=== PATIENT | male | born 1990 | race Hispanic/Latino ===

== ENCOUNTER 2018-10-06 12:58 | Emergency (ER) | payer BC ==
[2018-10-06] MEDS ORDERED: IBUPROFEN 400 MG TABLET ONE (13:28)
[2018-10-06 13:44] LABS: APPEARANCE,URINE Clear (CLEAR); BILIRUBIN,URINE Negative (NEGATIVE); COLOR,URINE Yellow (YELLOW); GLUCOSE, URINE (UA) Negative (NEGATIVE); KETONES,URINE Negative (NEGATIVE); LEUKOCYTE ESTERASE ,URINE Trace (NEGATIVE); NITRATE,URINE Negative (NEGATIVE); OCCULT BLOOD,URINE Negative (NEGATIVE); PROTEIN,URINE Negative (NEGATIVE)
[2018-10-06 14:01] LABS: RAPID GROUP A STREP NEGATIVE (NEGATIVE)
[2018-10-06 14:04] LABS: BACTERIA,URINE Rare /HPF (None Seen); MUCUS,URINE Many LPF (None Seen); RBC,URINE 0-1 /HPF (0-1); SQUAMOUS EPITHELIAL CELL,UR Rare /HPF (0-2); WBC,URINE 0-1 /HPF (0-1)
[2018-10-06 15:41] LABS: BASOPHILS % (AUTO) 0.1 % (0.0-5.0); EOSINOPHILS % (AUTO) 0.1 % (0.0-8.0); HEMATOCRIT 40.3 % (42-54); LYMPHOCYTES % (AUTO) 7.4 % (21.0-51.0); MEAN CORPUSCULAR HEMOGLOBIN 31.7 pg (27.0-33.0); MEAN CORPUSCULAR VOLUME 93.4 fL (79-99); MONOCYTES % (AUTO) 5.6 % (3.0-13.0); NEUTROPHILS % (AUTO) 86.8 % (40.0-77.0); PLATELET COUNT (AUTO) 173 K/uL (130-400); RED BLOOD CELL COUNT(AUTO) 4.31 MIL/uL (4.50-6.20); RED CELL DISTRIBUTION WIDTH 12.6 % (11.0-15.5)
[2018-10-06 15:50] LABS: CREATININE 0.9 mg/dL (0.5-1.5); POTASSIUM 3.6 mmol/L (3.5-5.1)
== END 2018-10-06 15:50 | disposition home or self-care (01) ==
LOC: EDH 12:58
DX: B34.9 Viral infection, unspecified (principal); H10.023 Other mucopurulent conjunctivitis, bilateral; R19.7 Diarrhea, unspecified; J45.909 Unspecified asthma, uncomplicated
CPT/HCPCS: 36415; 80048; 81001; 85025; 87804; 87880

== ENCOUNTER 2019-02-22 12:53 | Emergency (ER) | payer OTHER ==
[2019-02-22] MEDS ORDERED: ACETAMINOPHEN 325 MG TAB ONE (13:13)
[2019-02-22] MEDS ORDERED: KETOROLAC TROMETHAMINE 60 MG/2 ML VIAL ONE (13:13)
[2019-02-22] MEDS ORDERED: ONDANSETRON ODT 4 MG TAB ONE (13:14)
[2019-02-22 14:06] LABS: RAPID GROUP A STREP NEGATIVE (NEGATIVE)
== END 2019-02-22 14:18 | disposition home or self-care (01) ==
LOC: EDH 12:53
DX: J11.1 Influenza due to unidentified influenza virus with other respiratory manifestations (principal); J45.909 Unspecified asthma, uncomplicated
CPT/HCPCS: 87804 ×2; 87880; 96372; 99284; J1885

== ENCOUNTER 2019-05-09 12:25 | Emergency (ER) | payer SELFPAY ==
[2019-05-09] MEDS ORDERED: METHYLPREDNISOLONE SOD SUCC 125MG/2ML VIAL ONE (12:55)
[2019-05-09] MEDS ORDERED: IPRATROPIUM/ALBUTEROL SULFATE 3 ML SOLUTION IH ONE (13:10)
== END 2019-05-09 14:38 | disposition home or self-care (01) ==
LOC: EDH 12:25
DX: J45.901 Unspecified asthma with (acute) exacerbation (principal)
CPT/HCPCS: 71046; 87804 ×2; 94640; 96372; 99285; J2930; 96374

== ENCOUNTER 2019-10-16 22:45 | Emergency (ER) | payer OTHER | END 2019-10-16 23:41 | disposition home or self-care (01) | LOC: EDH 22:45 | DX: J30.9 Allergic rhinitis, unspecified (principal) | CPT/HCPCS: 99282 ==

== ENCOUNTER 2019-11-17 01:12 | Emergency (ER) | payer OTHER ==
[2019-11-17 01:47] LABS: APPEARANCE,URINE Clear (CLEAR); BILIRUBIN,URINE Negative (NEGATIVE); COLOR,URINE Yellow (YELLOW); GLUCOSE, URINE (UA) Negative (NEGATIVE); KETONES,URINE Negative (NEGATIVE); LEUKOCYTE ESTERASE ,URINE Negative (NEGATIVE); NITRATE,URINE Negative (NEGATIVE); OCCULT BLOOD,URINE Negative (NEGATIVE); PROTEIN,URINE Negative (NEGATIVE)
[2019-11-17] MEDS ORDERED: LIDOCAINE HCL MPF 1% 5ML VIAL ONE (02:53)
[2019-11-17] MEDS ORDERED: CEFTRIAXONE SODIUM 500 MG VIAL ONE (02:53)
[2019-11-17] MEDS ORDERED: AZITHROMYCIN 250 MG TABLET PO ONE (02:54)
== END 2019-11-17 03:24 | disposition home or self-care (01) ==
LOC: EDH 01:12
DX: R30.0 Dysuria (principal); R35.0 Frequency of micturition; R39.15 Urgency of urination; J45.909 Unspecified asthma, uncomplicated
CPT/HCPCS: 81003; 87088; 87486; 87797; 96372; 99283; J0696; J3490

== ENCOUNTER 2021-01-04 12:44 | Emergency (ER) | payer OTHER | END 2021-01-04 13:56 | disposition home or self-care (01) | LOC: EDH 12:44 | DX: M25.561 Pain in right knee (principal); M25.562 Pain in left knee; J45.909 Unspecified asthma, uncomplicated; V49.49XA Driver injured in collision with other motor vehicles in traffic accident, initial encounter; Y93.89 Activity, other specified; Y92.89 Other specified places as the place of occurrence of the external cause; Y99.8 Other external cause status ==

== ENCOUNTER 2021-07-01 18:28 | Emergency (ER) | payer SELFPAY ==
[~2021-07-01] VITALS: Ht 175.3 cm; Wt 67.1 kg
[2021-07-01] MEDS ORDERED: NEOMY SULF/BACITRA/POLYMYXIN B 1 EACH PACKET TP ONE (18:53)
[2021-07-01] MEDS ORDERED: CEPH500B PO (19:49)
[2021-07-01] MEDS ORDERED: IBUP-2088 PO (19:49)
[2021-07-01 20:01] VITALS: BP 127/71
== END 2021-07-01 20:06 | disposition home or self-care (01) ==
LOC: EDH 18:28
DX: S62.606A Fracture of unspecified phalanx of right little finger, initial encounter for closed fracture (principal); J45.909 Unspecified asthma, uncomplicated; Z79.899 Other long term (current) drug therapy; W23.0XXA Caught, crushed, jammed, or pinched between moving objects, initial encounter; Y93.89 Activity, other specified; Y92.89 Other specified places as the place of occurrence of the external cause; Y99.8 Other external cause status
CPT/HCPCS: 29130; 73130

== ENCOUNTER 2021-11-11 10:25 | Emergency (ER) | payer OTHER ==
[~2021-11-11] VITALS: Ht 175.3 cm; Wt 63.5 kg
[~2021-11-11 10:25] MED LIST: CEPH500B PO; IBUP-2088 PO
[2021-11-11 10:27] VITALS: BP 125/69
[2021-11-11] MEDS ORDERED: IBUPROFEN 600 MG TABLET ONE (12:22)
[2021-11-11] MEDS ORDERED: NAPR500T6 PO (12:22)
[2021-11-11] MEDS ORDERED: IBUPROFEN 600 MG TABLET PO SCH (12:30)
== END 2021-11-11 13:11 | disposition home or self-care (01) ==
LOC: EDH 10:25
DX: S20.212A Contusion of left front wall of thorax, initial encounter (principal); J45.909 Unspecified asthma, uncomplicated; Z79.899 Other long term (current) drug therapy; W18.39XA Other fall on same level, initial encounter; Y93.89 Activity, other specified; Y92.89 Other specified places as the place of occurrence of the external cause; Y99.8 Other external cause status
CPT/HCPCS: 71046

== ENCOUNTER 2023-05-31 19:46 | Emergency (ER) | payer OTHER ==
[~2023-05-31] VITALS: Ht 175.3 cm; Wt 63.0 kg
[~2023-05-31 19:46] MED LIST changes: +NAPR500T6 PO
[2023-05-31 20:36] VITALS: BP 124/76; PULSE 72; RESP 20
[2023-05-31 20:54] LABS: APPEARANCE,URINE CLEAR (CLEAR); BILIRUBIN,URINE NEGATIVE (NEGATIVE); COLOR,URINE COLORLESS (YELLOW); GLUCOSE, URINE (UA) NEGATIVE (NEGATIVE); KETONES,URINE NEGATIVE (NEGATIVE); LEUKOCYTE ESTERASE ,URINE NEGATIVE Leu/uL (NEGATIVE); NITRATE,URINE NEGATIVE (NEGATIVE); OCCULT BLOOD,URINE NEGATIVE (NEGATIVE); PH,URINE 7.5 (5.0-8.0); PROTEIN,URINE NEGATIVE (NEGATIVE); UROBILINOGEN,URINE 0.2 mg/dL (0.2-1.0)
[2023-05-31 20:55] LABS: ADD UA MICROSCOPIC YES
[2023-05-31 20:56] LABS: BACTERIA,URINE RARE /HPF (None Seen); RBC,URINE 0-1 /HPF (0-1); SQUAMOUS EPITHELIAL CELL,UR RARE /HPF (0-2); UNCLASSIFIED CRYSTAL 4 /HPF (None Seen); WBC,URINE 0-1 /HPF (0-1); YEAST,URINE BUDDING RARE /HPF (None Seen)
[2023-06-01] MEDS ORDERED: TAMS-1 PO (16:52)
[2023-06-01] MEDS ORDERED: IBUP-2070 PO (16:52)
== END 2023-06-01 01:29 | disposition left against medical advice (07) ==
LOC: EDH 19:46
DX: R10.9 Unspecified abdominal pain (principal); Z53.21 Procedure and treatment not carried out due to patient leaving prior to being seen by health care provider
CPT/HCPCS: 81001

== ENCOUNTER 2023-06-01 12:33 | Emergency (ER) | payer OTHER ==
[~2023-06-01] VITALS: Ht 175.3 cm; Wt 63.5 kg
[2023-06-01 12:45] VITALS: BP 121/77; PULSE 90; RESP 16; O2SAT 98
[2023-06-01 13:54] LABS: BASOPHILS # (AUTO) 0.01 K/uL (0.00-0.20); BASOPHILS % (AUTO) 0.2 % (0.0-5.0); EOSINOPHILS # (AUTO) 0.08 K/uL (0.00-0.70); EOSINOPHILS % (AUTO) 1.3 % (0.0-8.0); HEMATOCRIT 48.1 % (42-54); IMMATURE GRANULOCYTE ABSOLUTE 0.02 K/uL (0-1); LYMPHOCYTES # (AUTO) 1.2 K/uL (1.0-4.8); MEAN CORPUSCULAR HEMOGLOBIN 32.5 pg (27.0-33.0); MEAN CORPUSCULAR HGB CONC 33.5 g/dL (32.0-36.0); MONOCYTES # (AUTO) 0.4 K/uL (0.1-1.0); MONOCYTES % (AUTO) 6.4 % (3.0-13.0); NEUTROPHILS # (AUTO) 4.4 K/uL (1.8-7.7); NEUTROPHILS % (AUTO) 72.8 % (40.0-77.0); PLATELET COUNT (AUTO) 221 K/uL (130-400); RED BLOOD CELL COUNT(AUTO) 4.96 MIL/uL (4.50-6.20); RED CELL DISTRIBUTION WIDTH 12.3 % (11.0-15.5); WHITE BLOOD COUNT (AUTO) 6.1 K/uL (4.8-10.8)
[2023-06-01 14:05] LABS: CREATININE 1.1 mg/dL (0.5-1.5); POTASSIUM 3.8 mmol/L (3.5-5.1)
[2023-06-01 15:40] LABS: APPEARANCE,URINE CLOUDY (CLEAR); BILIRUBIN,URINE NEGATIVE (NEGATIVE); COLOR,URINE YELLOW (YELLOW); GLUCOSE, URINE (UA) NEGATIVE (NEGATIVE); KETONES,URINE NEGATIVE (NEGATIVE); LEUKOCYTE ESTERASE ,URINE NEGATIVE Leu/uL (NEGATIVE); NITRATE,URINE NEGATIVE (NEGATIVE); PH,URINE 6.5 (5.0-8.0); PROTEIN,URINE NEGATIVE (NEGATIVE); UROBILINOGEN,URINE 3 mg/dL (0.2-1.0)
[2023-06-01 15:41] LABS: ADD UA MICROSCOPIC YES
[2023-06-01 15:44] LABS: BACTERIA,URINE RARE /HPF (None Seen); MUCUS,URINE FEW LPF (None Seen)
[2023-06-01] MEDS ORDERED: IBUP-2070 PO (16:52)
[2023-06-01] MEDS ORDERED: TAMS-1 PO (16:52)
== END 2023-06-01 17:08 | disposition home or self-care (01) ==
LOC: EDH 12:33
DX: N20.0 Calculus of kidney (principal); S20.212A Contusion of left front wall of thorax, initial encounter; J45.909 Unspecified asthma, uncomplicated; X58.XXXA Exposure to other specified factors, initial encounter; Y93.89 Activity, other specified; Y92.89 Other specified places as the place of occurrence of the external cause; Y99.8 Other external cause status
CPT/HCPCS: 36415; 74176; 80048; 81001; 85025; 87486; 87797

== ENCOUNTER 2023-08-10 12:02 | Emergency (ER) | payer OTHER ==
[~2023-08-10] VITALS: Ht 175.3 cm; Wt 65.8 kg
[~2023-08-10 12:02] MED LIST changes: +IBUP-2070 PO; +TAMS-1 PO
[2023-08-10 12:05] VITALS: BP 128/72; PULSE 120; RESP 20
[2023-08-10] MEDS ORDERED: LORATADINE 10 MG TABLET PO SCH (13:30)
[2023-08-10] MEDS ORDERED: IBUPROFEN 600 MG TABLET PO ONE (13:30)
[2023-08-10 14:05] LABS: COVID19 (SARS ANTIGEN RAPID) PRESUMPTIVE NEGATIVE (NEGATIVE)
[2023-08-10 14:06] LABS: INFLUENZA TYPE A Negative For Type A (NEGATIVE)
[2023-08-10 14:16] LABS: INFLUENZA TYPE B Positive For Type B (NEGATIVE)
[2023-08-10] MEDS ORDERED: GUAI1TBM19 PO (14:45)
[2023-08-10] MEDS ORDERED: OSEL75 PO (14:45)
[2023-08-10] MEDS ORDERED: IBUP-2070 PO (14:45)
== END 2023-08-10 15:06 | disposition home or self-care (01) ==
LOC: EDH 12:02
DX: J10.1 Influenza due to other identified influenza virus with other respiratory manifestations (principal); B34.9 Viral infection, unspecified; J45.909 Unspecified asthma, uncomplicated; Z20.822 Contact with and (suspected) exposure to COVID-19; Z79.899 Other long term (current) drug therapy; Z98.890 Other specified postprocedural states
CPT/HCPCS: 87426; 87804

== ENCOUNTER 2023-11-01 13:49 | Emergency (ER) | payer OTHER ==
[~2023-11-01] VITALS: Ht 175.3 cm; Wt 68.0 kg
[~2023-11-01 13:49] MED LIST changes: +GUAI1TBM19 PO; +OSEL75 PO
[2023-11-01 14:20] VITALS: BP 121/65; PULSE 84; RESP 16
[2023-11-01 14:55] LABS: BASOPHILS # (AUTO) 0.02 K/uL (0.00-0.20); BASOPHILS % (AUTO) 0.3 % (0.0-5.0); EOSINOPHILS # (AUTO) 0.19 K/uL (0.00-0.70); EOSINOPHILS % (AUTO) 2.5 % (0.0-8.0); IMMATURE GRANULOCYTE ABSOLUTE 0.02 K/uL (0-1); LYMPHOCYTES # (AUTO) 2.1 K/uL (1.0-4.8); LYMPHOCYTES % (AUTO) 27.1 % (21.0-51.0); MEAN CORPUSCULAR HEMOGLOBIN 32.4 pg (27.0-33.0); MEAN CORPUSCULAR HGB CONC 33.6 g/dL (32.0-36.0); MEAN CORPUSCULAR VOLUME 96.6 fL (79-99); MONOCYTES # (AUTO) 0.5 K/uL (0.1-1.0); NEUTROPHILS # (AUTO) 4.9 K/uL (1.8-7.7); NEUTROPHILS % (AUTO) 63.8 % (40.0-77.0); PLATELET COUNT (AUTO) 242 K/uL (130-400); RED BLOOD CELL COUNT(AUTO) 4.66 MIL/uL (4.50-6.20); RED CELL DISTRIBUTION WIDTH 12.1 % (11.0-15.5); WHITE BLOOD COUNT (AUTO) 7.6 K/uL (4.8-10.8)
[2023-11-01 15:08] LABS: POTASSIUM 3.7 mmol/L (3.5-5.1)
[2023-11-01 15:18] LABS: ALBUMIN 3.9 g/dL (3.5-5.0); BILIRUBIN,TOTAL 0.4 mg/dL (0.2-1.0); TOTAL PROTEIN, SERUM 7.8 g/dL (6.0-8.3)
[2023-11-01] MEDS: KETOROLAC 30MG VIAL (30MG/ML) IVP ONE (17:00)
[2023-11-01 18:08] LABS: APPEARANCE,URINE TURBID (CLEAR); BILIRUBIN,URINE NEGATIVE (NEGATIVE); COLOR,URINE YELLOW (YELLOW); GLUCOSE, URINE (UA) NEGATIVE (NEGATIVE); KETONES,URINE NEGATIVE (NEGATIVE); LEUKOCYTE ESTERASE ,URINE NEGATIVE Leu/uL (NEGATIVE); NITRATE,URINE NEGATIVE (NEGATIVE); OCCULT BLOOD,URINE NEGATIVE (NEGATIVE); PH,URINE 6.5 (5.0-8.0); PROTEIN,URINE 10 mg/dL (NEGATIVE); UROBILINOGEN,URINE 0.2 mg/dL (0.2-1.0)
[2023-11-01 18:09] LABS: ADD UA MICROSCOPIC YES
[2023-11-01 18:11] LABS: BACTERIA,URINE RARE /HPF (None Seen); MUCUS,URINE RARE LPF (None Seen); OTHER CASTS, URINE 8 /LPF (None Seen); UNCLASSIFIED CRYSTAL 9 /HPF (None Seen); YEAST,URINE BUDDING MOD /HPF (None Seen)
[2023-11-01 18:15] LABS: AMPHET/METH SCREEN,URINE NEGATIVE (NEGATIVE); BARBITURATE SCREEN, URINE NEGATIVE (NEGATIVE); BENZODIAZEPINES SCREEN,URINE NEGATIVE (NEGATIVE); CANNABINOID SCREEN,URINE NEGATIVE (NEGATIVE); COCAINE SCREEN,URINE NEGATIVE (NEGATIVE); OPIATE SCREEN,URINE NEGATIVE (NEGATIVE); PHENCYCLIDINE SCREEN,URINE NEGATIVE (NEGATIVE)
[2023-11-01] MEDS: LACTATED RINGERS 1000ML IV SCH (18:19)
[2023-11-01] MEDS: MECLIZINE HCL 25 MG TABLET PO ONE (18:19)
[2023-11-01] MEDS ORDERED: IBUP-2070 PO (19:03)
[2023-11-01] MEDS ORDERED: AMOX500C2 PO (19:03)
[2023-11-01 19:08] LABS: RAPID GROUP A STREP negative (NEGATIVE)
[2023-11-01 19:10] LABS: SARS-CoV-2, RNA, NAAT NEGATIVE SARS CoV-2 (NEGATIVE)
[2023-11-01 19:18] LABS: INFLUENZA TYPE A Negative For Type A (NEGATIVE); INFLUENZA TYPE B Negative For Type B (NEGATIVE)
== END 2023-11-01 19:50 | disposition home or self-care (01) ==
LOC: EDH 13:49
DX: H92.02 Otalgia, left ear (principal); R06.02 Shortness of breath; R42 Dizziness and giddiness; J45.909 Unspecified asthma, uncomplicated; Z20.822 Contact with and (suspected) exposure to COVID-19; Z79.899 Other long term (current) drug therapy
CPT/HCPCS: 99285; 96360; 71045; 87635; 84484; 80053; 80305; 85025; 87088; 87880; 87804 ×2; 36415; 93005; 81001; J7120; 96365; J1885

== ENCOUNTER 2023-11-06 12:08 | Emergency (ER) | payer OTHER ==
[~2023-11-06] VITALS: Ht 175.3 cm; Wt 65.8 kg
[~2023-11-06 12:08] MED LIST changes: +AMOX500C2 PO
[2023-11-06 16:56] VITALS: BP 124/70; PULSE 66; RESP 16; O2SAT 98
== END 2023-11-06 16:51 | disposition home or self-care (01) ==
LOC: EDH 12:08
DX: F41.0 Panic disorder [episodic paroxysmal anxiety] (principal); J45.909 Unspecified asthma, uncomplicated; Z79.899 Other long term (current) drug therapy
CPT/HCPCS: 71045

== ENCOUNTER 2024-04-18 01:20 | Emergency (ER) | payer OTHER ==
[~2024-04-18] VITALS: Ht 175.3 cm; Wt 65.5 kg
[2024-04-18 01:59] LABS: BASOPHILS # (AUTO) 0.01 K/uL (0.00-0.20); BASOPHILS % (AUTO) 0.1 % (0.0-5.0); EOSINOPHILS # (AUTO) 0.25 K/uL (0.00-0.70); EOSINOPHILS % (AUTO) 3.4 % (0.0-8.0); HEMATOCRIT 39.1 % (42-54); IMMATURE GRANULOCYTE ABSOLUTE 0.03 K/uL (0-1); LYMPHOCYTES # (AUTO) 1.9 K/uL (1.0-4.8); LYMPHOCYTES % (AUTO) 25.8 % (21.0-51.0); MEAN CORPUSCULAR HEMOGLOBIN 31.5 pg (27.0-33.0); MEAN CORPUSCULAR HGB CONC 34.3 g/dL (32.0-36.0); MONOCYTES # (AUTO) 0.5 K/uL (0.1-1.0); MONOCYTES % (AUTO) 6.3 % (3.0-13.0); NEUTROPHILS # (AUTO) 4.7 K/uL (1.8-7.7); PLATELET COUNT (AUTO) 261 K/uL (130-400); RED BLOOD CELL COUNT(AUTO) 4.25 MIL/uL (4.50-6.20); RED CELL DISTRIBUTION WIDTH 11.9 % (11.0-15.5); WHITE BLOOD COUNT (AUTO) 7.4 K/uL (4.8-10.8)
[2024-04-18 02:09] LABS: CREATININE 0.9 mg/dL (0.5-1.3); POTASSIUM 3.4 mmol/L (3.5-5.1)
[2024-04-18] MEDS: LIDOCAINE HCL 2% VISCOUS 15 ML UDCUP PO ONE (02:56)
[2024-04-18] MEDS: MAG/ALUM/SIMETH 30 ML UDCUP PO ONE (02:56)
[2024-04-18] MEDS: PANTOPRAZOLE 40 MG/VIAL IVP ONE (03:01)
[2024-04-18] MEDS ORDERED: PANT40TA55 PO (03:52)
[2024-04-18 04:01] VITALS: BP 142/75; PULSE 86; RESP 18; O2SAT 98
== END 2024-04-18 04:00 | disposition home or self-care (01) ==
LOC: EDH 01:20
DX: K21.9 Gastro-esophageal reflux disease without esophagitis (principal); F41.9 Anxiety disorder, unspecified; J45.909 Unspecified asthma, uncomplicated; Z79.899 Other long term (current) drug therapy
CPT/HCPCS: 99284; 84484; 80048; 83690; 85025; 36415; 93005; J2470

== ENCOUNTER 2024-05-30 11:30 | Emergency (ER) | payer SELFPAY ==
[~2024-05-30] VITALS: Ht 175.3 cm; Wt 63.5 kg
[~2024-05-30 11:30] MED LIST changes: +PANT40TA55 PO
[2024-05-30 13:15] LABS: BASOPHILS # (AUTO) 0.01 K/uL (0.00-0.20); BASOPHILS % (AUTO) 0.2 % (0.0-5.0); EOSINOPHILS # (AUTO) 0.24 K/uL (0.00-0.70); HEMATOCRIT 42.6 % (42-54); IMMATURE GRANULOCYTE ABSOLUTE 0.02 K/uL (0-1); LYMPHOCYTES # (AUTO) 1.6 K/uL (1.0-4.8); LYMPHOCYTES % (AUTO) 26.5 % (21.0-51.0); MEAN CORPUSCULAR HEMOGLOBIN 31.4 pg (27.0-33.0); MEAN CORPUSCULAR VOLUME 92.2 fL (79-99); MONOCYTES # (AUTO) 0.5 K/uL (0.1-1.0); MONOCYTES % (AUTO) 7.9 % (3.0-13.0); NEUTROPHILS # (AUTO) 3.7 K/uL (1.8-7.7); NEUTROPHILS % (AUTO) 61.1 % (40.0-77.0); PLATELET COUNT (AUTO) 249 K/uL (130-400); RED BLOOD CELL COUNT(AUTO) 4.62 MIL/uL (4.50-6.20); RED CELL DISTRIBUTION WIDTH 12.1 % (11.0-15.5); WHITE BLOOD COUNT (AUTO) 6.1 K/uL (4.8-10.8)
[2024-05-30 13:22] LABS: CREATININE 0.8 mg/dL (0.5-1.3)
[2024-05-30 13:26] LABS: ALBUMIN 3.9 g/dL (3.5-5.0); BILIRUBIN,TOTAL 0.4 mg/dL (0.2-1.0)
[2024-05-30] MEDS: FAMOTIDINE 20MG TAB PO ONE (13:46)
[2024-05-30 15:26] LABS: APPEARANCE,URINE CLEAR (CLEAR); BILIRUBIN,URINE NEGATIVE (NEGATIVE); COLOR,URINE LIGHT-YELLOW (YELLOW); GLUCOSE, URINE (UA) NEGATIVE (NEGATIVE); KETONES,URINE NEGATIVE (NEGATIVE); LEUKOCYTE ESTERASE ,URINE NEGATIVE Leu/uL (NEGATIVE); NITRATE,URINE NEGATIVE (NEGATIVE); OCCULT BLOOD,URINE NEGATIVE (NEGATIVE); PROTEIN,URINE NEGATIVE (NEGATIVE); UROBILINOGEN,URINE 0.2 mg/dL (0.2-1.0)
[2024-05-30 15:27] LABS: ADD UA MICROSCOPIC NO
[2024-05-30] MEDS ORDERED: SUCR1TAB28 PO (15:29)
[2024-05-30] MEDS ORDERED: OMEP40CA21 PO (15:29)
[2024-05-30 15:47] VITALS: BP 127/68; PULSE 98; RESP 18; TEMP 98.5; O2SAT 98
== END 2024-05-30 15:52 | disposition home or self-care (01) ==
LOC: EDH 11:30
DX: K21.9 Gastro-esophageal reflux disease without esophagitis (principal); F41.9 Anxiety disorder, unspecified; J45.909 Unspecified asthma, uncomplicated; Z79.899 Other long term (current) drug therapy; Z98.890 Other specified postprocedural states
CPT/HCPCS: 36415; 80053; 81003; 83690; 85025